=== PATIENT | female | born 1940 | race Caucasian/White ===

== ENCOUNTER 2023-06-26 23:50 | Inpatient (IN) ==
[2023-06-27] MEDS ORDERED: oxyCODONE IR HOME PACK PO ONE (00:10)
--- NOTE | 2023-06-27 00:14 | Emergency Department Note ---
Impression & Plan Closed fracture of neck of left femur, Fall from standing ED Provider Note HISTORY OF PRESENT ILLNESS: Patient is an 86-year-old female presenting with left hip pain. Patient reports that at 11 AM today while she was in the kitchen she slipped and fell, landing on her left hip. She states that she was initially able to hesitantly get up on her own, but has been using a chair for balance to get around at home secondary to some significant pain in her left hip. She states that she was unable to get back from going to the bathroom earlier this evening, prompting her to be evaluated in the emergency department. Denies striking her head or loss of consciousness with the fall. States that she landed directly on her left hip. Denies any numbness or tingling down the leg. Reports she took some ibuprofen earlier today with little relief in her pain. States that bearing weight causes significant pain in the left lateral hip. Denies any chest pain, shortness breath or lightheadedness prior to the fall. She denies passing out. ROS: as above PHYSICAL EXAM: Constitutional: Patient appears in no acute distress. HENT: Head: Normocephalic and atraumatic. Eyes: EOMI, PERRL Mouth/Throat: Mucous membranes moist. Neck: Trachea midline. Neck supple. Abdominal: Abdomen soft, no tenderness, rebound or guarding. Musculoskeletal: - LLE: No obvious deformity or open wounds. Patient has difficulty straight leg raising secondary to significant pain in the left lateral hip. Tender to palpation over the left lateral hip. Able to flex and extend at the knee and dorsiflex and plantarflex at the ankle. Intact DP and PT pulses. Sensation intact light touch at the nerve distributions of the leg Skin: Warm and dry. No rash, erythema, pallor or cyanosis Psychiatric: Appropriate mood and affect for situation. Neurological: Alert and keenly responsive. CN II-XII grossly intact, moving all extremities equally and fully. MDM: - Vitals signs showed hypertension and tachycardia. - History obtained via patient. Patient presents with left hip pain after fall from standing. Patient reports at 11 AM today she was in the kitchen and tripped and fell, landing on her left hip. She states that she was initially able to hesitantly get up on her own and has been using a chair for balance to get around at home secondary to significant pain in her left hip. She states that as the day has progressed, her pain is got significantly worse with ambulation, prompting evaluation in the ER. Denies any chest pain, shortness of breath, lightheadedness or syncope. She denies striking her head or loss of consciousness. - Chronic conditions affecting care: None - Differential diagnoses include, but are not limited to: Femur fracture; pelvic fracture; bony contusion - Order placed for continuous cardiac monitoring. At this time, monitor showed rate of 100 bpm with normal sinus rhythm, per my interpretation. - External medical records reviewed. - Xray pelvis with left hip shows left femoral neck fracture. - Patient initially given 5 mg PO oxycodone for pain control - IV established and laboratory workup and EKG obtained for pre-operative clearance. - EKG per my interpretation showed normal sinus rhythm. Rate 84 bpm. QTc 437. No acute ischemic changes - Discussion was had with social worker health services about patient's case and need for admission - Hospitalist consulted for admission - [facility] ASSESSMENT AND PLAN: Diagnosis: Left femoral neck fracture; fall from standing Plan: admit Past Med/Surg History Medical History Cataract No known health problems denies any medical issues Surgical History History of cataract surgery Hx of tubal ligation Family History Other No family history of adverse response to anesthesia Social History Smoking Status: Never smoker Second Hand Exposure: No; Do You Dip or Chew Tobacco: No; Hx Alcohol Use: No Hx Substance Use: No Preferred Language: Egyptian Communication Ability: Effective Beauty Sales Consultant Required: No Beliefs That Will Affect Care: None Current Living Situation: Family Feels Safe at Home: Yes Assistive Devices: Glasses Allergies Allergies Allergy/AdvReac Type Severity Reaction Status Date / Time adhesive Allergy Mild Rash Verified 06/27/23 00:05 Home Meds Home Medications Medication Instructions Recorded Confirmed No Known Home Medications 10/11/22 06/27/23 Results & Data (ED) Vital Signs Vital Signs - 24 hr 06/26/23 23:55 Temperature 36.2 C L Temperature Source Temporal Artery Scan Pulse Rate 100 H Respiratory Rate 16 Respiratory Effort / Characteristics Non-Labored Spontaneous Respiratory Depth Normal Blood Pressure 184/88 H Blood Pressure Mean 120 Blood Pressure Position Sitting Pulse Oximetry 94 Oxygen Delivery Method Room Air Sepsis Recent Fever Within 48 Hours No Sepsis New/Unexplained Change in Mental Status N/A Sepsis Action Taken by Nursing No Action Required Administered Medications Discontinued Medications Oxycodone HCl (Oxycodone Ir Home Pack) 1 each PO UD ONE Stop: 06/27/23 00:11 Last Admin: 06/27/23 01:10 Dose: Not Given Documented By: REINA Oxycodone HCl (Oxycodone Hcl Ir 5 Mg Tab (Immediate Release)) 5 mg PO NOW STA Stop: 06/27/23 00:26 Last Admin: 06/27/23 00:37 Dose: 5 mg Documented By: REINA Discharge Plan Visit Data Chief Complaint: Hip Pain Stated Complaint: FALL ED Provider: Bernadette Vick Discharge Problem: Closed fracture of neck of left femur, Fall from standing Forms Stand Alone Forms: [facility] Prescriptions Prescriptions: No Action No Known Home Medications Referrals Referrals: PCP,NO [Primary Care Provider] -
[2023-06-27] MEDS ORDERED: oxyCODONE HCL IR 5 MG TAB (IMMEDIATE RELEASE) PO STA (00:25)
[2023-06-27 01:53] LABS: Basophils # (auto) 0.04 K/uL (0.00-0.20); Basophils % (auto) 0.3 %; Eosinophils # (auto) 0.01 K/uL (0.00-0.50); Eosinophils % (auto) 0.1 %; Hematocrit (blood only) 38.6 % (37.0-47.0); Immature Granulocytes # (auto) 0.06 K/uL (0.01-0.20); Immature Granulocytes % (auto) 0.5 %; Lymphocytes # (auto) 0.73 K/uL (1.20-3.40); Lymphocytes % (auto) 6.3 %; Mean Corpuscular Hemoglobin 30.7 pg (25.0-34.0); Mean Corpuscular Hgb Conc 33.7 g/dL (32.0-36.0); Mean Corpuscular Volume 91.3 fL (80.0-100.0); Mean Platelet Volume 10.7 fL (9.4-12.4); Monocytes # (auto) 0.73 K/uL (0.11-0.59); Monocytes % (auto) 6.3 %; Neutrophils # (auto) 9.93 K/uL (1.40-6.50); Neutrophils % (auto) 86.5 %; Platelet Count 212 K/uL (130-400); RDW Coefficient of Variation 12.6 % (11.5-14.5); RDW Standard Deviation 41.4 fL (36.4-46.3); Red Blood Count 4.23 M/uL (4.20-5.40)
[2023-06-27 02:14] LABS: Alanine Aminotransferase 16 U/L (7-52); Albumin Globulin Ratio 1.2 (0.9-2); Albumin Level 4.1 gm/dl (3.4-5.0); Alkaline Phosphatase 47 U/L (34-104); Anion Gap 8 (3-11); BUN Creatinine Ratio 21.7 (10-20); Blood Urea Nitrogen 18 mg/dl (6-23); Calcium 9.1 mg/dl (8.6-10.3); Carbon Dioxide 24 mmol/L (21-32); Chloride 105 mmol/L (98-107); Creatinine Clr Calc Pharmacy 45.2 ml/min; Est GFR (African American) 77.2 ml/min; Est GFR (Non-African American) 66.6 ml/min; Globulin 3.4 gm/dl (2.5-4.0); Glucose 122 mg/dl (70-99(Fasting)); Magnesium 2.1 mg/dl (1.7-2.4); Sodium 137 mmol/L (136-145); Total Protein 7.5 gm/dl (6.0-8.3)
[2023-06-27] MEDS ORDERED: cloNIDine HCL 0.1 MG TAB PO ONE (02:17)
[2023-06-27 03:07] LABS: Potassium 3.8 mmol/L (3.5-5.1)
[2023-06-27 03:29] LABS: Appearance Urine Cloudy (Clear); Bacteria Urine Automated 4+ (Negative); Bilirubin Urine Negative (Negative); Blood Urine Trace (Negative); Color Urine Yellow; Epithelial Cell Urine Auto >30 /lpf (0-5); Glucose Urine UA Negative (Negative); Ketones Urine 1+ (Negative); Leukocyte Esterase Urine 1+ (Negative); Nitrite Urine Negative (Negative); Protein Urine Trace (Negative); RBC Urine Automated 0-4 /hpf (0-4); Specific Gravity Urine 1.015 (1.000-1.030); Urobilinogen Urine Negative (Negative); pH Urine 6.5 (4.5-7.5)
--- NOTE | 2023-06-27 03:29 | History & Physical Report ---
Date of Service June 27, 2023 Assessment & Plan (1) Asymptomatic hypertensive urgency: Plan: Secondary to traumatic left femoral fracture Likely chronic BP elevation given cardiomegaly on imaging Patient has been told that she might have HTN when she had outpatient cataract surgery months ago. Hyperglycemia rule out DM Medical telemetry given BP elevation Initiate lisinopril Analgesia Orthopedics consult Re: Left femoral fracture N.p.o. until patient seen by orthopedics in anticipation of surgery. Acceptable risk for cardiac complications resulting from prospective procedure Revised Cardiac Risk Index (RCRI): 1. High-risk type of surgery (examples include vascular and any open intraperitoneal or intrathoracic procedures). No 2. History of ischemic heart disease (history of myocardial infarction or positive exercise test, current compliant of chest pain considered to be secondary to myocardial ischemia, use of nitrate therapy, or ECG with pathological Q waves; do not count prior coronary revascularization procedure unless one of the other criteria for ischemic heart disease is present). No 3. History of heart failure. No 4. History of cerebrovascular disease. No 5. Diabetes mellitus requiring treatment with insulin. No 6. Preoperative serum creatinine >2.0. No Pt has revised cardiac index score of 0 points. (Class I Risk.) 3.9 % 30-day risk of , [place], or cardiac arrest. Acceptable risk for cardiac complications if surgery recommended by Orthopedics and patient/family agreeable to attendant procedural benefits and risks.. Check hemoglobin A1c DVT prophylaxis. SCDs Re: Possible procedure Full code Patient requests for son to be updated of progress/plan of care. Mr. Fady Acosta, contact number #[phone]. Text document was generated using [employer] voice recognition software. It may contain grammatical or spelling errors. Kindly contact undersigned for clarification of any documentation item in question. History of Present Illness Chief Complaint: Left hip pain, fall Primary Care Provider: NO PCP History obtained from patient and records. Medical history significant for possible hypertension. Patient has not had a family doctor for about 50 years. Patient was not happy with last provider she saw when she was residing in [place]. Patient slipped in her kitchen yesterday morning subsequently landing on her left hip. Achy left hip pain, some difficulty in getting up. No headache/head trauma/LOC/chest pain/SOB. Worsening pain on ambulation as they progressed as per patient. Highest SBP of 190s documented at the ER. Medical History as above Surgical History : Cataract surgeries, BTL Family History : Heart disease, DM, stroke Personal/Social history : Non-smoker, no EtOH intake, retired businesswoman, lives with son Allergies Allergy/AdvReac Type Severity Reaction Status Date / Time adhesive Allergy Mild Rash Verified 06/27/23 00:05 Home Medications Medication Instructions Recorded Confirmed Type No Known Home Medications 10/11/22 06/27/23 History Past Med/Surg History Medical History Cataract No known health problems denies any medical issues Surgical History History of cataract surgery Hx of tubal ligation Family History Other No family history of adverse response to anesthesia Social History Smoking Status: Never smoker Second Hand Exposure: No; Do You Dip or Chew Tobacco: No; Tobacco Cessation Education Requested by Patient: No Hx Alcohol Use: No Hx Substance Use: No Preferred Language: Latvian Communication Ability: Effective Rejected Items Clerk Required: No Beliefs That Will Affect Care: None Current Living Situation: Family Other Information That Helps Us Care for You: No Feels Safe at Home: Yes Safety Concerns: Feels Safe At This Time Assistive Devices: None Review of Systems Review of Systems: As per HPI, all other systems reviewed and negative Physical Exam Physical Exam: GENERAL: Comfortable, pleasant, slightly anxious, looks younger than stated age, no respiratory distress SKIN: Normal color, warm HEENT: [place] palpebral conjunctivae, no ptosis, moist buccal mucosa NECK : Supple, no tenderness CHEST : CTA, no tenderness HEART : RRR, no obvious murmurs ABDOMEN: Some distention, nontender EXTREMITIES : No LE swelling, left hip tenderness, no other conspicuous deformities noted NEUROLOGIC : Coherent, no facial asymmetry, no other gross focality Results & Data Results & Data Vital Signs (Past 12 Hours) Vital Signs Temp Pulse Pulse Resp BP BP Pulse Ox 06/27/23 03:00 79 16 199/84 H 95 06/27/23 02:30 76 18 168/89 H 93 06/27/23 02:00 74 18 181/87 H 91 06/27/23 01:16 78 18 198/87 H 95 06/26/23 23:55 36.2 C L 100 H 16 184/88 H 94 O2 Del Method 06/27/23 03:00 06/27/23 02:30 Room Air 06/27/23 02:00 Room Air 06/27/23 01:16 Room Air 06/26/23 23:55 Room Air Laboratory Results Laboratory Results WBC 11.50 K/ul (4.8-10.8) H 06/27/23 01:20 RBC 4.23 M/uL (4.20-5.40) 06/27/23 01:20 Hgb 13.0 g/dl (12.0-16.0) 06/27/23 01:20 Hct 38.6 % (37.0-47.0) 06/27/23 01:20 MCV 91.3 fL (80.0-100.0) 06/27/23 01:20 MCH 30.7 pg (25.0-34.0) 06/27/23 01:20 MCHC 33.7 g/dL (32.0-36.0) 06/27/23 01:20 RDW Std Deviation 41.4 fL (36.4-46.3) 06/27/23 01:20 RDW Coeff of Anny 12.6 % (11.5-14.5) 06/27/23 01:20 Plt Count 212 K/uL (130-400) 06/27/23 01:20 MPV 10.7 fL (9.4-12.4) 06/27/23 01:20 Immature Gran % (Auto) 0.5 % 06/27/23 01:20 Neut % (Auto) 86.5 % 06/27/23 01:20 Lymph % (Auto) 6.3 % 06/27/23 01:20 [place] % (Auto) 6.3 % 06/27/23 01:20 Eos % (Auto) 0.1 % 06/27/23 01:20 Baso % (Auto) 0.3 % 06/27/23 01:20 Neut # (Auto) 9.93 K/uL (1.40-6.50) H 06/27/23 01:20 Lymph # (Auto) 0.73 K/uL (1.20-3.40) L 06/27/23 01:20 [place] # (Auto) 0.73 K/uL (0.11-0.59) H 06/27/23 01:20 Eos # (Auto) 0.01 K/uL (0.00-0.50) 06/27/23 01:20 Baso # (Auto) 0.04 K/uL (0.00-0.20) 06/27/23 01:20 Immature Gran # (Auto) 0.06 K/uL (0.01-0.20) 06/27/23 01:20 PT Cancelled 06/27/23 01:20 INR Cancelled 06/27/23 01:20 APTT Cancelled 06/27/23 01:20 PTT Ratio Cancelled 06/27/23 01:20 Sodium 137 mmol/L (136-145) 06/27/23 01:20 Potassium 3.8 mmol/L (3.5-5.1) 06/27/23 02:27 Chloride 105 mmol/L (98-107) 06/27/23 01:20 Carbon Dioxide 24 mmol/L (21-32) 06/27/23 01:20 Anion Gap 8 (3-11) 06/27/23 01:20 BUN 18 mg/dl (6-23) 06/27/23 01:20 Creatinine 0.83 mg/dl (0.6-1.2) 06/27/23 01:20 Est Cr Clr Drug Dosing 45.2 ml/min 06/27/23 01:20 Est GFR ( Amer) 77.2 ml/min 06/27/23 01:20 Est GFR (Non-Af Amer) 66.6 ml/min 06/27/23 01:20 BUN/Creatinine Ratio 21.7 (10-20) H 06/27/23 01:20 Glucose 122 mg/dl (70-99(Fasting)) H 06/27/23 01:20 Calcium 9.1 mg/dl (8.6-10.3) 06/27/23 01:20 Magnesium 2.1 mg/dl (1.7-2.4) 06/27/23 01:20 Total Bilirubin 1.0 mg/dl (0.2-1.0) 06/27/23 01:20 AST 21 U/L (13-39) 06/27/23 02:27 ALT 16 U/L (7-52) 06/27/23 01:20 Alkaline Phosphatase 47 U/L (34-104) 06/27/23 01:20 Total Protein 7.5 gm/dl (6.0-8.3) 06/27/23 01:20 Albumin 4.1 gm/dl (3.4-5.0) 06/27/23 01:20 Globulin 3.4 gm/dl (2.5-4.0) 06/27/23 01:20 Albumin/Globulin Ratio 1.2 (0.9-2) 06/27/23 01:20 Blood Type A Positive 06/27/23 01:20 Antibody Screen NEGATIVE 06/27/23 01:20 Diagnostic Findings Pelvic x-ray as per my interpretation showed displaced left femoral neck fracture Chest x-ray as per my interpretation showed borderline cardiomegaly EKG could not be obtained at time of dictation.
[2023-06-27] MEDS ORDERED: MoRPHine SULFATE 2 MG/ML CARP IV PRN (03:34)
[2023-06-27] MEDS ORDERED: PROMETHAZINE HCL 6.25 MG in SODIUM CHLORIDE 0.9% 50 ML IV PRN (03:34)
[2023-06-27] MEDS ORDERED: LORazepam 0.5 MG TAB PO PRN (03:34)
[2023-06-27] MEDS ORDERED: oxyCODONE HCL IR 5 MG TAB (IMMEDIATE RELEASE) PO PRN (03:34)
[2023-06-27] MEDS ORDERED: LACTATED RINGER'S 1,000 ML IV ONE (03:36)
[2023-06-27] MEDS ORDERED: lisinopril 2.5 MG TAB PO STA (03:53)
[2023-06-27 03:55] LABS: Partial Thromboplastin Time 27.6 Seconds (21.0-31.0)
[2023-06-27] MEDS ORDERED: NALOXONE HCL 0.4 MG/1 ML VIAL/CARP IV PRN (05:13)
[2023-06-27] MEDS ORDERED: bisacodyL 10 MG SUPP PR PRN (05:13)
[2023-06-27] MEDS ORDERED: ROPIVACAINE 0.5% HCL/PF 150 MG, BUPIVACAINE 0.75% MPF 20 ML, EPINEPHrine 30MG/30ML (OR ... INSTIL SCH (06:00)
--- NOTE | 2023-06-27 07:04 | XRay Report ---
XR chest 1V portable CLINICAL HISTORY: Fall. Hypertension. COMPARISON STUDY: No previous studies for comparison. FINDINGS: There is no pneumothorax or pleural effusion. Linear left basilar density reflects atelecta sis. There is no consolidation. Pulmonary vascularity is normal. There is mild cardiomegaly. Lordotic positioning is noted on this exam. IMPRESSION: No acute cardiopulmonary findings. Cardiomegaly. ACT 112: Negative or not required by law. Electronically signed by: Moises Palacio M.D. 06/27/2023 7:02 AM
--- NOTE | 2023-06-27 07:09 | XRay Report ---
XR hip LT 2V w pelvis CLINICAL HISTORY: left hip pain s/p fall from standing COMPARISON: None FINDINGS: Sacroiliac joints and symphysis pubis are intact. There is an acute displaced left femoral neck fracture. No additional fractures are identified on this exam. No osseous lesions. IMPRESSION: Acute displaced left femoral neck fracture. ACT 112: Negative or not required by law. Electronically signed by: Moises Palacio M.D. 06/27/2023 7:06 AM
[2023-06-27 07:35] LABS: Estimated Average Glucose 123 mg/dl; Hemoglobin A1C 5.9 % (4.5-5.6)
[2023-06-27] MEDS ORDERED: ORTHO JOINT ANESTHETIC ONE (09:13)
[2023-06-27] MEDS ORDERED: fentaNYL citrate PF 100 MCG/2 ML VIAL ONE (09:18)
[2023-06-27] MEDS ORDERED: PHENYLEPHRINE HCL 10 MG/ML VIAL ONE (09:19)
[2023-06-27] MEDS ORDERED: PROPOFOL IV EMULSION 10 MG/ML 20 ML VIAL IV ONE (09:19)
[2023-06-27] MEDS ORDERED: ONDANSETRON INJ 2 MG/ML 2 ML VIAL ONE (09:19)
[2023-06-27] MEDS ORDERED: ceFAZolin 2000MG 2,000 MG/15 ML SYR IV ONE (09:32)
[2023-06-27] MEDS ORDERED: KETAMINE 50 MG/5 ML SYRINGE ONE (09:34)
--- NOTE | 2023-06-27 09:35 | Anesthesiology Consultation ---
Date of Service June 27, 2023 Assessment & Plan Chart Review Chart Review: Acceptable Risk for Surgery Consults Requested none History Surgery Operation Date: 06/27/23 08:10 Proposed Procedures p Left Hip Hemiarthroplasty - Navjot Parikh DO Height/Weight Height: 5 ft 1 in Weight: 58.1 kg Allergies Allergy/AdvReac Type Severity Reaction Status Date / Time adhesive Allergy Mild Rash Verified 06/27/23 00:05 Medications Home Medications Medication Instructions Recorded Confirmed Last Taken No Known Home Medications 10/11/22 06/27/23 Unknown Active Medications Generic Name Dose Route Start Last Admin Trade Name Freq PRN Reason Stop Dose Admin Lactated Ringer's 1,000 mls @ 40 mls/hr 06/27/23 03:36 06/27/23 03:58 Lr IV 06/28/23 03:35 40 mls/hr .Q24H ONE Administration NPO Date Last Intake of Fluids: 06/26/23 Time Last Intake of Fluids: 22:00 Date Last Intake of Solids: 06/26/23 Time Last Intake of Solids: 18:00 Past Medical History Medical History Cataract No known health problems denies any medical issues Past Family History Family History Other No family history of adverse response to anesthesia Past Surgical History Surgical History History of cataract surgery Hx of tubal ligation Social History Smoking Status: Never smoker Do You Dip or Chew Tobacco: No Hx Alcohol Use: No Hx Substance Use: No substance use type: does not use Physical Exam Vital Signs Last Vital Signs Temp 36.8 C 06/27/23 08:54 Pulse 76 06/27/23 08:54 Resp 20 06/27/23 08:54 BP 168/56 H 06/27/23 08:54 Pulse Ox 97 06/27/23 08:54 O2 Del Method Room Air 06/27/23 08:54 Testing Laboratory Results 06/27/23 01:20 06/27/23 02:27 PT 11.0 Seconds (9.0-12.0) 06/27/23 03:04 INR 1.0 (0.9-1.1) 06/27/23 03:04 APTT 27.6 Seconds (21.0-31.0) 06/27/23 03:04 Hemoglobin A1c 5.9 % (4.5-5.6) H 06/27/23 03:04 Urine Color Yellow 06/27/23 02:27 Urine Appearance Cloudy (Clear) A 06/27/23 02:27 Urine pH 6.5 (4.5-7.5) 06/27/23 02:27 Ur Specific [place] 1.015 (1.000-1.030) 06/27/23 02:27 Urine Protein Trace (Negative) H 06/27/23 02:27 Urine Glucose (UA) Negative (Negative) 06/27/23 02:27 Urine Ketones 1+ (Negative) H 06/27/23 02:27 Urine Nitrite Negative (Negative) 06/27/23 02:27 Ur Leukocyte Esterase 1+ (Negative) H 06/27/23 02:27 Urine WBC (Auto) 10-30 /hpf (0-5) H 06/27/23 02:27 Urine RBC (Auto) 0-4 /hpf (0-4) 06/27/23 02:27 U Hyaline Cast (Auto) 1-5 /lpf (0-5) 06/27/23 02:27 U Epithel Cells (Auto) >30 /lpf (0-5) H 06/27/23 02:27 Urine Bacteria (Auto) 4+ (Negative) H 06/27/23 02:27 Blood Type A Positive 06/27/23 01:20 Antibody Screen NEGATIVE 06/27/23 01:20
[2023-06-27] MEDS ORDERED: ATROPINE SULFATE 0.1 MG/ML 10ML SYR IV PRN (09:36)
[2023-06-27] MEDS ORDERED: HYDROmorphone INJ 2 MG/ML SYR/VIAL IV PRN (09:36)
[2023-06-27] MEDS ORDERED: ONDANSETRON INJ 2 MG/ML 2 ML VIAL IV PRN (09:36)
[2023-06-27] MEDS ORDERED: fentaNYL citrate PF 100 MCG/2 ML VIAL IV PRN (09:36)
[2023-06-27] MEDS ORDERED: PROMETHAZINE HCL 12.5 MG in SODIUM CHLORIDE 0.9% 50 ML IV PRN (09:36)
[2023-06-27] MEDS ORDERED: ePHEDrine sulfate 50 MG/ML AMP IV PRN (09:36)
--- NOTE | 2023-06-27 09:38 | History & Physical Bridge Note ---
Date of Service June 27, 2023 History & Physical Bridge Note I have examined the patient, reviewed the History & Physical and in the interval since the performance of the History & Physical I have noted the following changes of clinical significance: no changes noted
--- NOTE | 2023-06-27 09:55 | Orthopedic Consultation ---
Date of Consultation June 27, 2023 Assessment & Plan (1) Closed displaced fracture of left femoral neck: Patient will remain n.p.o. for planned left hip hemiarthroplasty to occur today. All potential risks, benefits, alternatives and rehab were discussed with the patient. Patient decided to proceed with the procedure as indicated. Consent obtained and on the chart. Preoperative antibiotics administered. Postoperative VTE prophylaxis to begin tomorrow in consultation with medical team. Teds and SCDs while in bed. Will anticipate ambulation with a walker and assist x1 postoperatively today. Thank you for the opportunity to consult in the care of this patient. Navjot Jl [facility] orthopedic [place] [phone] (2) Fall from standing: (3) Asymptomatic hypertensive urgency: History of Present Illness Reason for Consultation: Left hip fracture after ground-level fall. Attending Physician: Dunia Rendon DO History of Present Illness This pleasant 82-year-old female sustained a near ground-level fall in her kitchen yesterday approximately 11 AM. Patient attempted to ambulate on the left hip however had significant pain and difficulty ambulation that she came to the emergency department to get checked out and after radiographs was noted to have a displaced left femoral neck fracture. Patient was admitted to the hospitalist service for medical optimization. Patient is now scheduled for left hip hemiarthroplasty as indicated. Allergies Allergy/AdvReac Type Severity Reaction Status Date / Time adhesive Allergy Mild Rash Verified 06/27/23 00:05 Home Medications Medication Instructions Recorded Confirmed Type No Known Home Medications 10/11/22 06/27/23 History Patient History Medical History Cataract No known health problems denies any medical issues Surgical History History of cataract surgery Hx of tubal ligation Family History Other No family history of adverse response to anesthesia Social History Smoking Status: Never smoker Second Hand Exposure: No; Do You Dip or Chew Tobacco: No; Tobacco Cessation Education Requested by Patient: No Hx Alcohol Use: No Hx Substance Use: No Preferred Language: Uzbek Communication Ability: Effective Zigzag Topstitcher Required: No Beliefs That Will Affect Care: None Current Living Situation: Family Other Information That Helps Us Care for You: No Feels Safe at Home: Yes Safety Concerns: Feels Safe At This Time Assistive Devices: None Physical Exam Constitutional: WD/WN, vitals as above Eyes: PERRL, conjunctivae normal, anicteric sclerae ENMT: external ear and nose normal, oropharynx normal Neck: trachea midline, no thyromegaly Respiratory: Clear to auscultation bilaterally. No rales rhonchi or wheezing. Cardiovascular: Regular rate and rhythm. Extremities x4 well perfused. Chest (Breasts): Additional Comments: Normal chest motion. Gastrointestinal (Abdomen): Abdomen soft, nontender and nondistended. Musculoskeletal: Focused exam left lower extremity demonstrates slight shortening and external rotation left lower extremity. Skin is warm, dry and intact. There is local trace bruising over the left greater trochanter. Tenderness to palpation over the left groin and left greater trochanter. Left hip irritability and pain with passive range of motion and heel strike. Distal neurovascular status is intact with capillary refill less than 2 seconds. Pedal pulses are palpable bilateral. Sensation is intact. Skin: no rashes, warm and dry Neurologic: PERRL, EOMI, accommodation nl, no face palsy, no dysarthria Psychiatric: A+Ox3, euthymic affect Lymphatic: no cervical or axillary lymphadenopathy Results & Data Vital Signs (Past 12 Hours) Vital Signs Temp Pulse Pulse Pulse Resp BP BP 06/27/23 08:54 36.8 C 76 20 168/56 H 06/27/23 08:41 36.6 C 98 H 16 161/52 H 06/27/23 06:11 72 06/27/23 05:16 75 18 172/66 H 06/27/23 04:01 72 16 140/77 06/27/23 03:00 79 16 199/84 H 06/27/23 02:30 76 18 168/89 H 06/27/23 02:00 74 18 181/87 H 06/27/23 01:16 78 18 198/87 H 06/26/23 23:55 36.2 C L 100 H 16 184/88 H Pulse Ox O2 Del Method 06/27/23 08:54 97 Room Air 06/27/23 08:41 97 Room Air 06/27/23 06:11 06/27/23 05:16 95 Room Air 06/27/23 04:01 93 06/27/23 03:00 95 06/27/23 02:30 93 Room Air 06/27/23 02:00 91 Room Air 06/27/23 01:16 95 Room Air 06/26/23 23:55 94 Room Air Diagnostic Findings Near 100% displaced left femoral neck fracture. Osteopenia. No other associated fractures noted.
[2023-06-27] MEDS ORDERED: BUPIVACAINE 0.5 % 5 MG/1 ML PF 10ML VIAL ONE (10:09)
--- NOTE | 2023-06-27 10:09 | Hospitalist Progress Note ---
Date of Service June 27, 2023 Assessment & Plan (1) Asymptomatic hypertensive urgency: Plan: Secondary to traumatic left femoral fracture Likely chronic BP elevation given cardiomegaly on imaging Patient has been told that she might have HTN when she had outpatient cataract surgery months ago. Lisinopril 2.5 mg was initiated. Postoperatively her blood pressure is now rising to 176 systolic. We will give an additional dose now and increase to lisinopril 10 mg every morning. Trend BMP and CBC in AM. Continue appropriate analgesia postop Hyperglycemia ruled out DMII wtih A1C 5.9 (2) Closed displaced fracture of left femoral neck: Plan: Status post left hip hemiarthroplasty by Dr. Parikh today. Recovering well postoperatively. Activity restrictions and wound care per orthopedics. SCDs, restart DVT prophylaxis when cleared by orthopedics. Full Code Dispo-uncertain at this time. PT/OT to evaluate. [facility]ated Dis[facility] Date Admission Date: June 27, 2023 Subjective 82-year-old female admitted with traumatic left femoral fracture status post surgery today. She was evaluated postoperatively and reports no pain with improved mobility She is tolerating p.o. No other issues reported. Physical Exam Physical Exam: CONSTITUTIONAL: WNWD, vitals as above, generally well-appearing, NAD EYES: normal conjunctivae, no scleral icterus ENT: external ear and nose normal, MMM NECK: trachea midline RESPIRATORY: clear to auscultation bilaterally, no crackles, rales or wheezes, normal respiratory effort CARDIOVASCULAR: regular rate and rhythm, S1 and 2 heard without murmurs, gallops or rubs, no JVD, no peripheral edema CHEST: inspection of chest was normal GASTROINTESTINAL: soft, nontender, ND, no guarding MUSCULOSKELETAL: strength 5/5 throughout, head is normocephalic and atraumatic SKIN: warm and dry, hip incision covered wtih surgical dressing on the left hip that is c/d/i NEUROLOGIC: CN 2-12 grossly intact, no sensory deficit, normal cognition, normal speech, no tremor PSYCHIATRIC: alert cooperative and oriented to person, place and time. Results & Data Results & Data Vital Signs (Past 12 Hours) Vital Signs Temp Pulse Pulse Pulse Resp BP BP 06/27/23 08:54 36.8 C 76 20 168/56 H 06/27/23 08:41 36.6 C 98 H 16 161/52 H 06/27/23 06:11 72 06/27/23 05:16 75 18 172/66 H 06/27/23 04:01 72 16 140/77 06/27/23 03:00 79 16 199/84 H 06/27/23 02:30 76 18 168/89 H 06/27/23 02:00 74 18 181/87 H 06/27/23 01:16 78 18 198/87 H 06/26/23 23:55 36.2 C L 100 H 16 184/88 H Pulse Ox O2 Del Method 06/27/23 08:54 97 Room Air 06/27/23 08:41 97 Room Air 06/27/23 06:11 06/27/23 05:16 95 Room Air 06/27/23 04:01 93 06/27/23 03:00 95 06/27/23 02:30 93 Room Air 06/27/23 02:00 91 Room Air 06/27/23 01:16 95 Room Air 06/26/23 23:55 94 Room Air Laboratory Results Short CBC 06/27/23 Range/Units 01:20 WBC 11.50 H (4.8-10.8) K/ul Hgb 13.0 (12.0-16.0) g/dl Hct 38.6 (37.0-47.0) % Plt Count 212 (130-400) K/uL BMP 06/27/23 06/27/23 01:20 02:27 Sodium 137 Potassium TNP 3.8 Chloride 105 Carbon Dioxide 24 BUN 18 Creatinine 0.83 Glucose 122 H Calcium 9.1 Liver Function 06/27/23 06/27/23 Range/Units 01:20 02:27 Total Bilirubin 1.0 (0.2-1.0) mg/dl AST TNP 21 ALT 16 (7-52) U/L Alkaline Phosphatase 47 (34-104) U/L Albumin 4.1 (3.4-5.0) gm/dl Urine 06/27/23 Range/Units 02:27 Urine Color Yellow Urine Appearance Cloudy A (Clear) Urine pH 6.5 (4.5-7.5) Ur Specific [place] 1.015 (1.000-1.030) Urine Protein Trace H (Negative) Urine Glucose (UA) Negative (Negative) Diagnostic Findings Hip/Pelvis X-Ray 06/27/23 00:01 XR hip LT 2V w pelvis CLINICAL HISTORY: left hip pain s/p fall from standing COMPARISON: None FINDINGS: Sacroiliac joints and symphysis pubis are intact. There is an acute displaced left femoral neck fracture. No additional fractures are identified on this exam. No osseous lesions. IMPRESSION: Acute displaced left femoral neck fracture. ACT 112: Negative or not required by law. Electronically signed by: Moises Palacio M.D. 06/27/2023 7:06 AM Chest X-Ray 06/27/23 02:18 XR chest 1V portable CLINICAL HISTORY: Fall. Hypertension. COMPARISON STUDY: No previous studies for comparison. FINDINGS: There is no pneumothorax or pleural effusion. Linear left basilar density reflects atelectasis. There is no consolidation. Pulmonary vascularity is normal. There is mild cardiomegaly. Lordotic positioning is noted on this exam. IMPRESSION: No acute cardiopulmonary findings. Cardiomegaly. ACT 112: Negative or not required by law. Electronically signed by: Moises Palacio M.D. 06/27/2023 7:02 AM
[2023-06-27] MEDS ORDERED: ePHEDrine sulfate 50 MG/5 ML SYR ONE (11:11)
--- NOTE | 2023-06-27 13:01 | Operative Report ---
Post Operative Report Pre & Post Diagnosis Operation Date: 06/27/23 08:10 Preoperative diagnosis: Left displaced femoral neck fracture, fall from ground- level Postoperative diagnosis: Left displaced femoral neck fracture, fall from ground- level I identified the patient and participated in the time-out.: Yes Procedure Operation Date: 06/27/23 08:10 Procedure: Left hip hemiarthroplasty for traumatic fracture using [place] Accolade 2 press-fit femoral stem size 3, [place] L fit V40 femoral head 26 mm outer diameter X +4 mm offset, UHR universal head 45 mm outer diameter and 26 mm inner diameter. Surgeon Navjot Parikh, Film Recordist None Estimated Blood Loss 20 Findings Consistent with Post-Op Diagnosis Specimens Bone and tissue left femoral head and neck Drains None Anesthesia Type Spinal MAC Complications none Disposition Accompanied Patient To Recovery: No Indications This is a pleasant 82-year-old female who sustained a ground-level fall onto her left hip yesterday while in her kitchen. She was transported to [facility] where she was evaluated with x-rays noting a displaced left femoral neck fracture. Patient was admitted to the hospitalist service for medical optimization and then patient was scheduled for left hip hemiarthroplasty as indicated. Description of Procedure All potential risks, benefits, complications, alternatives, rehab potential for incomplete relief of symptoms, need for further surgery, DVT, PE, , persistent pain, swelling, scarring, weakness, neurovascular injury, wound complications, hardware failure and bone fracture were discussed with the patient. The patient decided to proceed with the procedure as indicated. DESCRIPTION OF PROCEDURE: The patient was taken to the operative suite and placed supine on the Operating Room table. After review of the consent, identification of proper operative site, the patient was sedated. Spinal anesthetic was administered without difficulty. The patient was then placed in a right lateral decubitus position with the affected side up. Stulberg positioning pads were placed on the OR table. All bony prominences were properly padded and protected including use of an axillary roll. After the operative left hip was then sterilely prepped and draped in the usual fashion, a 10 blade scalpel incision was made centered over the anterior one third of the greater trochanter. The incision was deepened through the subcutaneous tissue. Meticulous hemostasis with achieved with electrocautery. Full thickness skin flaps were developed. Care was taken to cauterize any small punctate bleeders with a Bovie. Next, the iliotibial band was then incised along the skin incision, retracted both anteriorly and posteriorly using a Charnley retractor over moistened surgical towels. Next, the abductor split was made over the neck and head of the femur down to the level of the trochanter and then this plane was carried around the greater trochanter and then down the shaft of the femur via the vastus lateralis. All soft tissues were then sharply elevated with electrocautery anteriorly including the gluteus medius, the gluteus esther, the capsule and then the vastus lateralis. The fractured femoral neck was clearly identified and then a sagittal saw was used to resect the proximal neck cut without any difficulty approximately one fingerbreadth proximal to the lesser trochanter. Next, the femoral head was extracted from the acetabulum and measured to determine its diameter. A trial bipolar head was placed with Chidi retractors around the acetabulum and noted to have excellent fit, suction and stability. Then box osteotome and trial reamer placed in the proximal femur followed by sequential upbroaching until broach was firmly placed. Next, the calcar reamer was utilized to smooth the proximal femur followed by placement of a trial femoral stem and bipolar head. This was reduced and noted to have excellent stability and range of motion. Leg lengths were reapproximated to equal and then all trial implants were then removed. Pulsatile lavage with 3 liters of saline solution was used to lavage the femur, acetabulum and then all soft tissues. Next, final implant of a size 3 [place] Accolade taper femoral implant with a 132 neck angle with a +4 mm offset head was implanted and a [place] chrome head bipolar head with a 45 mm outer diameter bipolar head was then placed. The acetabulum was suctioned and reduced. Stable range of motion and re-creation of leg length was achieved. Shuck test was anatomic. Leg lengths were restored to equal. After the implants were implanted, dilute sterile Betadine was used to lavage the hip joint for 3 minutes and then this was suctioned and irrigated with pulsatile lavage. After the suction of the dilute Betadine, Orthomix was injected around the hip joint capsule and in the superficial soft tissues, avoiding the sciatic nerve to provide improved post operative pain relief. Next, pulsatile lavage was used to cleanse the deep joint capsule and all soft tissues. Next a #5 FiberWire was placed through the greater trochanter via 2.5 mm drill holes and sutured through the anterior capsule, gluteus minimus and then into the gluteus medius and then sutured back to the greater trochanter. Suture was then tied and cut followed [id number] sutures of #5 FiberWire in the proximal capsule. Next, the vastus lateralis was then closed using interrupted #1 Vicryl. The gluteus esther was closed with #1 Vicryl. The iliotibial band was closed with #1 Vicryl. The incision was copiously irrigated with pulsatile lavage and then the dermis was closed using buried interrupted 2-0 Vicryl. Skin was closed using skin sheila. A sterile compressive dressing was applied overwrapped with foam tape. The patient was then awakened and taken to recovery in stable condition with an abductor pillow. I attest to the content of the Intraoperative Record and any orders documented therein. Any exceptions are noted below. I attest to the content of the Intraoperative Record and any orders documented therein. Any exceptions are noted below.
--- NOTE | 2023-06-27 13:39 | Anesthesiology Progress Note ---
Date of Service June 27, 2023 Anesthesia Post Procedure Vital Signs Vital Signs: Temp Pulse Pulse Pulse Resp BP BP 06/27/23 13:31 64 12 132/56 L 06/27/23 13:20 61 12 142/48 H 06/27/23 13:10 65 12 137/48 L 06/27/23 13:00 36.4 C L 62 14 141/52 H 06/27/23 12:50 67 16 122/50 L 06/27/23 12:40 36.2 C L 71 16 109/48 L 06/27/23 10:38 64 06/27/23 08:54 36.8 C 76 20 06/27/23 08:41 36.6 C 98 H 16 06/27/23 06:11 72 06/27/23 05:16 75 18 06/27/23 04:01 72 16 140/77 06/27/23 03:00 79 16 199/84 H 06/27/23 02:30 76 18 06/27/23 02:00 74 18 06/27/23 01:16 78 18 06/26/23 23:55 36.2 C L 100 H 16 184/88 H BP Pulse Ox O2 Del Method O2 Flow Rate 06/27/23 13:31 97 Room Air 06/27/23 13:20 99 Room Air 06/27/23 13:10 96 Room Air 06/27/23 13:00 95 Room Air 06/27/23 12:50 97 Oxymask 4 06/27/23 12:40 98 Oxymask 6 06/27/23 10:38 06/27/23 08:54 168/56 H 97 Room Air 06/27/23 08:41 161/52 H 97 Room Air 06/27/23 06:11 06/27/23 05:16 172/66 H 95 Room Air 06/27/23 04:01 93 06/27/23 03:00 95 06/27/23 02:30 168/89 H 93 Room Air 06/27/23 02:00 181/87 H 91 Room Air 06/27/23 01:16 198/87 H 95 Room Air 06/26/23 23:55 94 Room Air Pain Intensity Left Hip: Pain Intensity: 2 Transfer of Care Handoff Completed per policy Notes Mental Status: alert / awake / arousable and participated in evaluation Nausea / Vomiting: adequately controlled Pain: adequately controlled Airway Patency, RR, SpO2: stable & adequate BP & HR: stable & adequate Hydration State: stable & adequate Neuraxial Anesthesia: was administered and sensory block is resolving Anesthetic Complications: no major complications apparent and Pt Satisfied with anesthetic care
--- NOTE | 2023-06-27 16:05 | XRay Report ---
AP PELVIS, CROSSTABLE LATERAL LEFT HIP History: Left hip prosthesis. Postop. FINDINGS: The patient is status post a left hip prosthesis. The hardware is intact. No fracture or di slocation. Skin sheila are in place. IMPRESSION: Left hip prosthesis. No evidence for hardware complication. ACT 112: Negative or not required by law. Electronically signed by: Freddy Dobson M.D. 06/27/2023 4:04 PM
[2023-06-27] MEDS: ceFAZolin 2000MG 2,000 MG/15 ML SYR IV SCH (17:44)
[2023-06-27] MEDS ORDERED: lisinopril 5 MG TAB PO ONE (19:10)
--- NOTE | 2023-06-27 20:37 | Electrocardiogram Report ---
Test Reason : Blood Pressure : / mmHG Vent. Rate : 084 BPM Atrial Rate : 084 BPM P-R Int : 140 ms QRS Dur : 070 ms QT Int : 370 ms P-R-T Axes : 049 -16 040 degrees QTc Int : 437 ms Normal sinus rhythm Possible Left atrial enlargement Cannot rule out Inferior infarct , age undetermined Poor R wave progression, consider anterior WA vs. lead placement vs. LVH Abnormal ECG No previous ECGs available Confirmed by Ashwin Mulligan ([id number]) on 06/27/2023 8:37:11 PM Referred By: REFERRED SELF Confirmed By:Darshan Mulligan
--- NOTE | 2023-06-27 20:39 | Electrocardiogram Report ---
Test Reason : Blood Pressure : / mmHG Vent. Rate : 064 BPM Atrial Rate : 064 BPM P-R Int : 148 ms QRS Dur : 070 ms QT Int : 450 ms P-R-T Axes : 071 -05 047 degrees QTc Int : 464 ms Normal sinus rhythm Low voltage QRS possible Inferior infarct (cited on or before 27-JUN-2023) Abnormal ECG When compared with ECG of 27-JUN-2023 00:44, (unconfirmed) Nonspecific T wave abnormality now evident in Lateral leads Confirmed by Ashwin Mulligan ([id number]) on 06/27/2023 8:38:52 PM Referred By: REFERRED SELF Confirmed By:Darshan Mulligan
[2023-06-28] MEDS: ceFAZolin 2000MG 2,000 MG/15 ML SYR IV SCH ×2 (01:56→11:05)
[2023-06-28] MEDS: ACETAMINOPHEN 325 MG TAB PO PRN ×3 (03:25→17:52)
[2023-06-28 07:06] LABS: Basophils # (auto) 0.01 K/uL (0.00-0.20); Basophils % (auto) 0.1 %; Hematocrit (blood only) 32.6 % (37.0-47.0); Hemoglobin 10.8 g/dl (12.0-16.0); Immature Granulocytes # (auto) 0.03 K/uL (0.01-0.20); Immature Granulocytes % (auto) 0.3 %; Lymphocytes # (auto) 0.59 K/uL (1.20-3.40); Mean Corpuscular Hemoglobin 30.7 pg (25.0-34.0); Mean Corpuscular Hgb Conc 33.1 g/dL (32.0-36.0); Mean Corpuscular Volume 92.6 fL (80.0-100.0); Mean Platelet Volume 10.9 fL (9.4-12.4); Monocytes % (auto) 7.1 %; Neutrophils # (auto) 8.56 K/uL (1.40-6.50); Neutrophils % (auto) 86.5 %; Platelet Count 174 K/uL (130-400); RDW Coefficient of Variation 12.6 % (11.5-14.5); RDW Standard Deviation 42.5 fL (36.4-46.3); Red Blood Count 3.52 M/uL (4.20-5.40); White Blood Count 9.89 K/ul (4.8-10.8)
[2023-06-28 07:41] LABS: BUN Creatinine Ratio 23.5 (10-20); Calcium 8.5 mg/dl (8.6-10.3); Creatinine Clr Calc Pharmacy 44.5 ml/min; Est GFR (Non-African American) 64.7 ml/min; Potassium 4.3 mmol/L (3.5-5.1)
[2023-06-28] MEDS: lisinopril 10 MG TAB PO SCH (08:55)
[2023-06-28] MEDS ORDERED: lisinopril 2.5 MG TAB PO SCH (09:00)
--- NOTE | 2023-06-28 09:10 | Hospitalist Progress Note ---
Date of Service June 28, 2023 Assessment & Plan (1) Asymptomatic hypertensive urgency: Plan: Secondary to traumatic left femoral fracture Likely chronic BP elevation given cardiomegaly on imaging Patient has been told that she might have HTN when she had outpatient cataract surgery months ago. Cont lisinopril and adequate postop analgesia. Currently BP is at goal. (2) Closed displaced fracture of left femoral neck: Plan: Status post left hip hemiarthroplasty by Dr. Parikh today. Recovering well postoperatively. Activity restrictions and wound care per orthopedics. (3) Age-related osteoporosis with current pathological fracture of femur: Plan: plan as noted above. Follow-up with outpatient PCP for consideration of further testing/treatment. (4) UTI (urinary tract infection): Plan: Preliminary growth GNB, cont cefazolin pending culture results. Doing well clinically. DC urinary catheter. Lovenox Full Code Dispo-dc telemetry, dc to home pending PT/OT and ortho clearance. Dunia Rendon DO [facility] Hospitalist Admission and Anticipated Discharge Date Admission Date: June 27, 2023 Subjective 82-year-old female admitted with traumatic left femoral fracture status post surgery today. She was evaluated postoperatively and reports no pain with improved mobility She is tolerating p.o. No other issues reported. BP improved Physical Exam Physical Exam: CONSTITUTIONAL: WNWD, vitals as above, generally well-appearing, NAD EYES: normal conjunctivae, no scleral icterus ENT: external ear and nose normal, MMM NECK: trachea midline RESPIRATORY: clear to auscultation bilaterally, no crackles, rales or wheezes, normal respiratory effort CARDIOVASCULAR: regular rate and rhythm, S1 and 2 heard without murmurs, gallops or rubs, no JVD, no peripheral edema CHEST: inspection of chest was normal GASTROINTESTINAL: soft, nontender, ND, no guarding MUSCULOSKELETAL: strength 5/5 throughout, head is normocephalic and atraumatic SKIN: warm and dry, hip incision covered wtih surgical dressing on the left hip that is c/d/i NEUROLOGIC: CN 2-12 grossly intact, no sensory deficit, normal cognition, normal speech, no tremor PSYCHIATRIC: alert cooperative and oriented to person, place and time. Results & Data Results & Data Vital Signs (Past 12 Hours) Vital Signs Temp Pulse Pulse Resp BP Pulse Ox O2 Del Method 06/28/23 07:51 36.6 C 71 16 152/67 H 91 Room Air 06/28/23 07:49 75 06/28/23 03:24 36.8 C 75 20 166/73 H 93 Room Air 06/27/23 23:20 Room Air 06/27/23 22:56 37.1 C 76 20 161/72 H 94 Room Air 06/27/23 21:53 77 Laboratory Results Short CBC 06/28/23 Range/Units 06:18 WBC 9.89 (4.8-10.8) K/ul Hgb 10.8 L (12.0-16.0) g/dl Hct 32.6 L (37.0-47.0) % Plt Count 174 (130-400) K/uL BMP 06/28/23 06:18 Sodium 139 Potassium 4.3 Chloride 107 Carbon Dioxide 25 BUN 20 Creatinine 0.85 Glucose 117 H Calcium 8.5 L Medications Administered Current Inpatient Medications Acetaminophen (Acetaminophen 325 Mg Tab) 650 mg PO QID PRN PRN Reason: pain/fever Stop: 07/27/23 03:33 Last Admin: 06/28/23 03:25 Dose: 650 mg Bisacodyl (Bisacodyl 10 Mg Supp) 10 mg CO DAILY PRN PRN Reason: Constipation Stop: 07/27/23 05:12 Promethazine HCl 6.25 mg/ (Sodium Chloride) 50.25 mls @ 201 mls/hr IV Q6H PRN PRN Reason: Nausea And Vomiting Stop: 07/27/23 03:33 Cefazolin Sodium (Ancef 2000mg) 2,000 mg in 15 mls @ 3.75 mls/min IV Q8H [facility]INAS; Protocol Stop: 06/28/23 17:59 Last Admin: 06/28/23 01:56 Dose: 3.75 mls/min Lisinopril (Lisinopril 10 Mg Tab) 10 mg PO QAM [facility]INAS Stop: 07/28/23 08:59 Last Admin: 06/28/23 08:55 Dose: 10 mg Lorazepam (Lorazepam 0.5 Mg Tab) 0.25 mg PO TID PRN PRN Reason: Anxiety Stop: 07/27/23 03:33 Morphine Sulfate (Morphine Sulfate 2 Mg/Ml Carp) 2 mg IV Q3H PRN PRN Reason: Pain Stop: 07/11/23 03:33 Naloxone HCl (Naloxone Hcl 0.4 Mg/1 Ml Vial/Carp) 0.1 mg IV UD PRN PRN Reason: Opiate Overdose Stop: 07/27/23 05:12 Oxycodone HCl (Oxycodone Hcl Ir 5 Mg Tab (Immediate Release)) 5 - 10 mg PO QID PRN PRN Reason: Pain Stop: 07/11/23 03:33
[2023-06-28] MEDS: ENOXAPARIN INJ 40 MG/0.4 ML SYR SQ SCH (15:48)
[2023-06-29] MEDS: ACETAMINOPHEN 325 MG TAB PO PRN ×3 (03:15→20:58)
[2023-06-29] MEDS: lisinopril 10 MG TAB PO SCH (08:25)
--- NOTE | 2023-06-29 10:02 | Hospitalist Progress Note ---
Date of Service June 29, 2023 Assessment & Plan (1) Asymptomatic hypertensive urgency: Plan: Secondary to traumatic left femoral fracture Likely chronic BP elevation given cardiomegaly on imaging Patient has been told that she might have HTN when she had outpatient cataract surgery months ago. Cont lisinopril and adequate postop analgesia. Currently BP is at goal on lisinopril which should be continued through discharge. (2) Closed displaced fracture of left femoral neck: Plan: Status post left hip hemiarthroplasty by Dr. Parikh. Recovering well postoperatively. Activity restrictions and wound care per orthopedics. (3) Age-related osteoporosis with current pathological fracture of femur: Plan: plan as noted above. Follow-up with outpatient PCP for consideration of further testing/treatment. (4) UTI (urinary tract infection): Plan: E coli with FQ resistance, switched to Augmentin for short course. Lovenox Full Code Dispo-dc telemetry, dc to home pending PT/OT and ortho clearance. Dunia Rendon DO [facility] Hospitalist Admission and Anticipated Discharge Date Admission Date: June 27, 2023 Subjective 82-year-old female admitted with traumatic left femoral fracture status post surgery today. reports pain is well managed She is tolerating p.o. No other issues reported. BP improved after am dose of lisinopril Physical Exam Physical Exam: CONSTITUTIONAL: WNWD, vitals as above, generally well-appearing, NAD EYES: normal conjunctivae, no scleral icterus ENT: external ear and nose normal, MMM NECK: trachea midline RESPIRATORY: clear to auscultation bilaterally, no crackles, rales or wheezes, normal respiratory effort CARDIOVASCULAR: regular rate and rhythm, S1 and 2 heard without murmurs, gallops or rubs, no JVD, no peripheral edema CHEST: inspection of chest was normal GASTROINTESTINAL: soft, nontender, ND, no guarding MUSCULOSKELETAL: strength 5/5 throughout, head is normocephalic and atraumatic SKIN: warm and dry, hip incision well healing -sheila intact NEUROLOGIC: CN 2-12 grossly intact, no sensory deficit, normal cognition, normal speech, no tremor PSYCHIATRIC: alert cooperative and oriented to person, place and time. Results & Data Results & Data Vital Signs (Past 12 Hours) Vital Signs Temp Pulse Resp BP Pulse Ox O2 Del Method 06/29/23 07:55 37.2 C 79 18 180/75 H 94 Room Air 06/29/23 02:26 Room Air Medications Administered Current Inpatient Medications Acetaminophen (Acetaminophen 325 Mg Tab) 650 mg PO QID PRN PRN Reason: pain/fever Stop: 07/27/23 03:33 Last Admin: 06/29/23 03:15 Dose: 650 mg Amoxicillin/Clavulanate Potassium (Amoxicillin/Clavulanate 875 Mg Tab) 1 tab PO BIDM [facility]; Protocol Stop: 07/04/23 16:59 Bisacodyl (Bisacodyl 10 Mg Supp) 10 mg ME DAILY PRN PRN Reason: Constipation Stop: 07/27/23 05:12 Enoxaparin Sodium (Enoxaparin Inj 40 Mg/0.4 Ml Syr) 40 mg SQ Q24H [facility] Stop: 07/28/23 14:14 Last Admin: 06/28/23 15:48 Dose: 40 mg Promethazine HCl 6.25 mg/ (Sodium Chloride) 50.25 mls @ 201 mls/hr IV Q6H PRN PRN Reason: Nausea And Vomiting Stop: 07/27/23 03:33 Lisinopril (Lisinopril 10 Mg Tab) 10 mg PO QAM [facility] Stop: 07/28/23 08:59 Last Admin: 06/29/23 08:25 Dose: 10 mg Naloxone HCl (Naloxone Hcl 0.4 Mg/1 Ml Vial/Carp) 0.1 mg IV UD PRN PRN Reason: Opiate Overdose Stop: 07/27/23 05:12 Oxycodone HCl (Oxycodone Hcl Ir 5 Mg Tab (Immediate Release)) 5 - 10 mg PO QID PRN PRN Reason: Pain Stop: 07/11/23 03:33
[2023-06-29] MEDS: ENOXAPARIN INJ 40 MG/0.4 ML SYR SQ SCH (13:56)
--- NOTE | 2023-06-29 17:08 | Orthopedic Progress Note ---
Date of Service June 28, 2023 Assessment & Plan (1) Closed displaced fracture of left femoral neck: Plan: Postoperative day #1. Status post hemiarthroplasty left hip. Postoperative antibiotics administered. Postoperative VTE prophylaxis to continue for a period of approximately 4 weeks. Teds and SCDs while in bed. Continue ambulation with a walker and assist x1. Thank you for the opportunity to consult in the care of this patient. Navjot Parikh [facility] ([id number]) [phone] (2) Fall from standing: (3) Asymptomatic hypertensive urgency: Admission and Anticipated Discharge Date Admission Date: June 27, 2023 Subjective 82-year-old female admitted with traumatic left femoral neck fracture POD #1 No pain with improved mobility during physical therapy and Occupational Therapy. Improved compared to yesterday. Eating well. No other issues reported. Physical Exam Constitutional: WD/WN, vitals as above Eyes: PERRL, conjunctivae normal, anicteric sclerae ENMT: external ear and nose normal, oropharynx normal Neck: trachea midline, no thyromegaly Musculoskeletal: Left hip ABD dressing clean, dry and intact. No strikethrough. [place] intact. Incision benign. Left hip compartments are soft. Calves are soft. Homans negative bilateral. Improving active and passive range of motion left hip. Distal neurovascular status intact. Pedal pulses palpable. Skin: no rashes, warm and dry Neurologic: PERRL, EOMI, accommodation nl, no face palsy, no dysarthria Psychiatric: A+Ox3, euthymic affect Lymphatic: no cervical or axillary lymphadenopathy Results & Data Vital Signs (Past 12 Hours) Vital Signs Temp Pulse Resp BP Pulse Ox O2 Del Method 06/29/23 14:55 36.5 C 83 18 156/91 H 98 Room Air 06/29/23 07:55 37.2 C 79 18 180/75 H 94 Room Air Diagnostic Findings Radiographs reviewed. Stable hemiarthroplasty left hip in good alignment.
[2023-06-29] MEDS: AMOXICILLIN/CLAVULANATE 875 MG TAB PO SCH (17:09)
--- NOTE | 2023-06-29 17:10 | Orthopedic Progress Note ---
Date of Service June 29, 2023 Assessment & Plan (1) Closed displaced fracture of left femoral neck: Plan: Postoperative day #2. Status post hemiarthroplasty left hip. Postoperative antibiotics administered. Postoperative VTE prophylaxis to continue for a period of approximately 4 weeks. Teds and SCDs while in bed. Continue ambulation with a walker and assist x1. Thank you for the opportunity to consult in the care of this patient. Navjot Parikh [facility] [phone] (2) Fall from standing: (3) Asymptomatic hypertensive urgency: Admission and Anticipated Discharge Date Admission Date: June 27, 2023 Subjective 82-year-old female status post hemiarthroplasty for left femoral neck fracture POD #2 Continuing physical therapy and Occupational Therapy. Decreased pain compared to yesterday. Eating well. No other issues reported. Physical Exam Constitutional: WD/WN, vitals as above Eyes: PERRL, conjunctivae normal, anicteric sclerae ENMT: external ear and nose normal, oropharynx normal Neck: trachea midline, no thyromegaly Musculoskeletal: Left hip ABD pad dressing with paper tape intact. Clean, dry and intact. Compartments of left hip are soft. Calves are soft. Homans negative. Distal neurovascular status intact. Pedal pulses are palpable. Active and passive range of motion are improved with diminished pain. Skin: no rashes, warm and dry Neurologic: PERRL, EOMI, accommodation nl, no face palsy, no dysarthria Psychiatric: A+Ox3, euthymic affect Lymphatic: no cervical or axillary lymphadenopathy Results & Data Vital Signs (Past 12 Hours) Vital Signs Temp Pulse Resp BP Pulse Ox O2 Del Method 06/29/23 14:55 36.5 C 83 18 156/91 H 98 Room Air 06/29/23 07:55 37.2 C 79 18 180/75 H 94 Room Air
[2023-06-30] MEDS: lisinopril 10 MG TAB PO SCH (08:00)
[2023-06-30] MEDS: AMOXICILLIN/CLAVULANATE 875 MG TAB PO SCH ×2 (08:00→17:11)
[2023-06-30] MEDS: ACETAMINOPHEN 325 MG TAB PO PRN (09:50)
[2023-06-30] MEDS ORDERED: lisinopril 10 MG TAB PO STA (10:38)
--- NOTE | 2023-06-30 10:39 | Hospitalist Progress Note ---
Date of Service June 30, 2023 Assessment & Plan (1) Asymptomatic hypertensive urgency: Plan: Secondary to traumatic left femoral fracture Likely chronic BP elevation given cardiomegaly on imaging Patient has been told that she might have HTN when she had outpatient cataract surgery months ago. Cont lisinopril and adequate postop analgesia. Currently BP is at goal on lisinopril which should be continued through discharge. (2) Closed displaced fracture of left femoral neck: Plan: Status post left hip hemiarthroplasty by Dr. Parikh. Recovering well postoperatively. Activity restrictions and wound care per orthopedics. (3) Age-related osteoporosis with current pathological fracture of femur: Plan: plan as noted above. Follow-up with outpatient PCP for consideration of further testing/treatment. (4) UTI (urinary tract infection): Plan: E coli with FQ resistance, switched to Augmentin for short course. Lovenox Full Code Dispo-dc to rehab when bed available . Dunia Rendon DO [facility] Hospitalist Admission and Anticipated Discharge Date Admission Date: June 27, 2023 Subjective 82-year-old female admitted with traumatic left femoral fracture status post surgery today. reports pain is well managed with APAP but she could use breakthrough on occasion She is tolerating p.o. No other issues reported. Son at bedside and assists with the history. Physical Exam Physical Exam: CONSTITUTIONAL: WNWD, vitals as above, generally well-appearing, NAD EYES: normal conjunctivae, no scleral icterus ENT: external ear and nose normal, MMM NECK: trachea midline RESPIRATORY: clear to auscultation bilaterally, no crackles, rales or wheezes, normal respiratory effort CARDIOVASCULAR: regular rate and rhythm, S1 and 2 heard without murmurs, gallops or rubs, no JVD, no peripheral edema CHEST: inspection of chest was normal GASTROINTESTINAL: soft, nontender, ND, no guarding MUSCULOSKELETAL: strength 5/5 throughout, head is normocephalic and atraumatic SKIN: warm and dry, hip incision well healing -sheila intact NEUROLOGIC: CN 2-12 grossly intact, no sensory deficit, normal cognition, normal speech, no tremor PSYCHIATRIC: alert cooperative and oriented to person, place and time. Results & Data Results & Data Vital Signs (Past 12 Hours) Vital Signs Temp Pulse Resp BP Pulse Ox O2 Del Method 06/30/23 08:01 36.6 C 96 H 16 175/87 H 96 Room Air 06/29/23 23:11 36.9 C 86 18 164/86 H 93 Room Air Medications Administered Current Inpatient Medications Acetaminophen (Acetaminophen 325 Mg Tab) 650 mg PO QID PRN PRN Reason: pain/fever Stop: 07/27/23 03:33 Last Admin: 06/30/23 09:50 Dose: 650 mg Amoxicillin/Clavulanate Potassium (Amoxicillin/Clavulanate 875 Mg Tab) 1 tab PO BIDM [facility]; Protocol Stop: 07/04/23 16:59 Last Admin: 06/30/23 08:00 Dose: 1 tab Bisacodyl (Bisacodyl 10 Mg Supp) 10 mg MD DAILY PRN PRN Reason: Constipation Stop: 07/27/23 05:12 Enoxaparin Sodium (Enoxaparin Inj 40 Mg/0.4 Ml Syr) 40 mg SQ Q24H [facility] Stop: 07/28/23 14:14 Last Admin: 06/29/23 13:56 Dose: 40 mg Promethazine HCl 6.25 mg/ (Sodium Chloride) 50.25 mls @ 201 mls/hr IV Q6H PRN PRN Reason: Nausea And Vomiting Stop: 07/27/23 03:33 Lisinopril (Lisinopril 10 Mg Tab) 10 mg PO NOW RUST Stop: 06/30/23 10:39 Lisinopril (Lisinopril 20 Mg Tab) 20 [facility] Stop: 07/31/23 08:59 Naloxone HCl (Naloxone Hcl 0.4 Mg/1 Ml Vial/Carp) 0.1 mg IV UD PRN PRN Reason: Opiate Overdose Stop: 07/27/23 05:12 Oxycodone HCl (Oxycodone Hcl Ir 5 Mg Tab (Immediate Release)) 5 - 10 mg PO QID PRN PRN Reason: Pain Stop: 07/11/23 03:33
[2023-06-30] MEDS ORDERED: traMADol HCL 50 MG TABLET PO PRN (10:54)
[2023-06-30] MEDS: ACETAMINOPHEN 500 MG TAB PO SCH ×2 (14:17→22:01)
[2023-06-30] MEDS: ENOXAPARIN INJ 40 MG/0.4 ML SYR SQ SCH (14:18)
[2023-06-30] MEDS ORDERED: IBUPROFEN 600 MG TAB PO PRN (16:17)
[2023-06-30] MEDS ORDERED: IBUPROFEN 600 MG TAB PO STA (16:17)
[2023-06-30] MEDS ORDERED: Nursing to Pharmacy Communication SCH (19:00)
[2023-07-01] MEDS: ACETAMINOPHEN 500 MG TAB PO SCH ×2 (05:35→13:02)
[2023-07-01 06:35] LABS: Hematocrit (blood only) 35.2 % (37.0-47.0); Hemoglobin 11.5 g/dl (12.0-16.0); Mean Corpuscular Hgb Conc 32.7 g/dL (32.0-36.0); Mean Corpuscular Volume 94.9 fL (80.0-100.0); Mean Platelet Volume 10.2 fL (9.4-12.4); Platelet Count 258 K/uL (130-400); RDW Coefficient of Variation 12.5 % (11.5-14.5); RDW Standard Deviation 43.7 fL (36.4-46.3); Red Blood Count 3.71 M/uL (4.20-5.40)
[2023-07-01 06:57] LABS: BUN Creatinine Ratio 30.2 (10-20); Calcium 8.4 mg/dl (8.6-10.3); Creatinine Clr Calc Pharmacy 43.7 ml/min; Est GFR (African American) 73.9 ml/min; Est GFR (Non-African American) 63.8 ml/min; Potassium 3.6 mmol/L (3.5-5.1)
[2023-07-01] MEDS: AMOXICILLIN/CLAVULANATE 875 MG TAB PO SCH (08:20)
[2023-07-01] MEDS ORDERED: lisinopril 10 MG TAB PO SCH (09:00)
[2023-07-01] MEDS ORDERED: lisinopril 20 MG TAB PO SCH (09:00)
--- NOTE | 2023-07-01 11:07 | Discharge Summary ---
Discharge Summary Date of Service July 01, 2023 Notes For Next Care Provider Patient presented to hospital secondary to fall and sustained left femoral fracture. On 06/27/2023 she underwent left hip hemiarthroplasty by Dr. Parikh. She is currently weightbearing as tolerated to left lower extremity with 1 assist. Maintain hip precautions. Current dressing is ABD micropore and if no dressing leave open to air. She will need to follow-up with Dr. Parikh in clinic in 2 weeks. Recommend CBC and BMP upon [facility]. She will also need a repeat BMP in 2 weeks to follow-up due to new addition of lisinopril. Patient does not have a primary care provider and will need to establish with one upon discharge from your facility. Prior history of hypertension and prior to hospitalization was not on any prescription medications. She was started on lisinopril 10 mg daily and this may need to be titrated based on her blood pressures. During hospitalization was diagnosed with UTI, E. coli, complete course of Augmentin through 07/04/2023. Dr. Parikh recommends maintaining VTE prophylaxis with 40mg SQ Lovenox daily for 4 weeks postoperatively. Medication Changes From Visit Augmentin 875 mg twice daily to complete through 07/04/2023 for urinary tract infection. Lisinopril 10 mg daily for hypertension Tramadol 50 mg every 4 hours as needed for severe pain. Admission HPI Per Admitting Provider History obtained from patient and records. Medical history significant for possible hypertension. Patient has not had a family doctor for about 50 years. Patient was not happy with last provider she saw when she was residing in [place]. Patient slipped in her kitchen yesterday morning subsequently landing on her left hip. Achy left hip pain, some difficulty in getting up. No headache/head trauma/LOC/chest pain/SOB. Worsening pain on ambulation as they progressed as per patient. Highest SBP of 190s documented at the ER. Medical History as above Surgical History : Cataract surgeries, BTL Family History : Heart disease, DM, stroke Personal/Social history : Non-smoker, no EtOH intake, retired businesswoman, lives with son Admission Exam Per Admitting Provider GENERAL: Comfortable, pleasant, slightly anxious, looks younger than stated age, no respiratory distress SKIN: Normal color, warm HEENT: [place] palpebral conjunctivae, no ptosis, moist buccal mucosa NECK : Supple, no tenderness CHEST : CTA, no tenderness HEART : RRR, no obvious murmurs ABDOMEN: Some distention, nontender EXTREMITIES : No LE swelling, left hip tenderness, no other conspicuous deformities noted NEUROLOGIC : Coherent, no facial asymmetry, no other gross focality Principal Dx & Hospital Course #1 = Principal Diagnosis (1) Age-related osteoporosis with current pathological fracture of femur: (2) Closed displaced fracture of left femoral neck: (3) Asymptomatic hypertensive urgency: (4) UTI (urinary tract infection): Plan This is an 82-year-old female who has prior past medical history of hypertension but is otherwise healthy who presented to ED secondary to fall. She was found sustaining a traumatic left femoral fracture, likely age-related osteoporotic fracture. She was seen and evaluated by orthopedics, Dr. Parikh, who proceeded to take patient to the OR for a left hip hemiarthroplasty. She tolerated the procedure well. Her postoperative course was complicated by acute E. coli UTI currently being treated with oral Augmentin through 07/04/2023. She was also noticeably hypertensive upon admission and throughout her hospital stay. Patient reports prior history of elevated blood pressure approximately 1 year ago when undergoing a cataract evaluation. She does not follow with a primary care provider and this will need to be established upon being discharged from rehab. She was started on lisinopril which seems to be improving her blood pressure. Currently she is on 10 mg daily and this may need to be titrated. On day of discharge her hemoglobin was 11.5 and BUN and creatinine was 26 and 0.86 respectively. Recommend following kidney function closely due to new addition of lisinopril. On day of discharge she was eager to go to [facility] begin [facility]hab. She offers no acute concerns or complaints on day of discharge and has very minimal left hip pain. She is hemodynamically stable although blood pressure mildly elevated at 163/75. Upon discharge from rehab Dr. Parikh's office will need to be contacted for follow-up appointment. Discharge Exam Gen: WD/WN, NAD, A&O x3 HEENT: Normocephalic, atraumatic, conjunctivae moist, sclerae anicteric, mucous membranes moist. Lung: Clear to Auscultation bilaterally, no wheezes/rales/rhonchi Heart: Regular rate, regular rhythm, no murmurs, rubs, or gallops Abdomen: Soft, NT, ND +BS x 4 Extremities: No edema, L hip dressing CDI Skin: Warm, no rash, negative turgor. Updated Medication List Medication Instructions Recorded Confirmed Type No Known Home Medications 10/11/22 06/27/23 History tramadol 50 mg tablet 50 mg PO Q4H PRN pain #1 tab 07/01/23 Rx Hospital Stay Data Consultations 06/27/23 00:41 ED Decision to Admit Stat 06/27/23 05:13 Consult Orthopedic Surgery Routine Procedures Performed Operation Date: 06/27/23 08:10 Actual Procedures p Left Hip Hemiarthroplasty(Left) - Navjot Parikh, DO Pending Results Patient Have Any Pending Studies at Discharge: No Discharge Instructions Given to Patient (Per Discharging Provider) MEDICATION CHANGES: Augmentin 875 mg twice daily to complete through 07/04/2023 for urinary tract infection. Lisinopril 10 mg daily for hypertension Tramadol 50 mg every 4 hours as needed for severe pain. SUMMARY OF TEST RESULTS: You were admitted to hospital secondary to traumatic left femoral fracture requiring a left hip hemiarthroplasty by Dr. Parikh. During hospital stay you were noted to have a urinary tract infection, E. coli, treated with appropriate antibiotics. You will finish antibiotics at rehab. You were also noted to have elevated blood pressure throughout your hospital stay. You were started on a low-dose of lisinopril to help improve this. PENDING TEST RESULTS: Surgical pathology is pending, follow up with Dr. Parikh regarding this. RECOMMENDATIONS FOR FOLLOW-UP: Upon discharge from rehab I recommend obtaining appointment and establishing care with a primary physician. Your blood pressure was elevated during the hospital stay. Recommend obtaining a blood pressure cuff from a local pharmacy and follow this closely. Goal blood pressure for you would be less than 140/90. Recommend remaining compliant with your new blood pressure medication. You will need a repeat BMP in 2 weeks. This is to monitor your kidney function and potassium levels due to starting the new blood pressure medication. Recommend to continue Lovenox injections daily for 4 weeks to prevent blood clots while recovering from hip surgery. You may bear weight as tolerated with a walker and assist of 1. Maintain hip precautions. Please follow up with Dr. Parikh in clinic, , within 2 weeks of discharge. You will need to call and make an appointment for this. Current dressing is ABD micropore and if no dressing leave open to air. OTHER INSTRUCTIONS: Seek medical attention if you have: * temperature above 101 * chest pain or trouble breathing * abdominal pain, nausea, vomiting * diarrhea, dark stools or bloody stools * any unanswered questions or concerns Call 911 if symptoms are severe. Please take good care of yourself. It has been a pleasure taking care of you. Please take care of yourself. If you have any questions regarding your recent hospitalization please contact [facility] and request [facility] @ [phone]. Nika Garcia PA-C Total Time Total Time Spent Total Time Spent (In Minutes): 45 minutes
[2023-07-01] MEDS: ENOXAPARIN INJ 40 MG/0.4 ML SYR SQ SCH (13:01)
== END 2023-07-01 13:30 | DRG 522 ==
LOC: ED 23:50 → 2N 06-27 03:31 → SUATTDRO 06-27 03:31 → 2N 06-27 04:36 → 3E 06-29 14:48